=== PATIENT | female | born 1985 | race Caucasian/White ===

== ENCOUNTER 2017-05-11 19:45 | Emergency (ER) | payer BC ==
[2017-05-11 19:50] VITALS: BP 133/78; BMI 34.9
[2017-05-11 20:38] LABS: BILIRUBIN,URINE NEGATIVE (NEGATIVE); BLOOD/HEMOGLOBIN,URINE NEGATIVE (NEGATIVE); GLUCOSE, URINE NEGATIVE (NEGATIVE); KETONES,URINE NEGATIVE (NEGATIVE); LEUKOCYTE ESTERASE ,URINE 1+ (NEGATIVE); NITRITES,URINE NEGATIVE (NEGATIVE); PROTEIN,URINE 1+ (NEGATIVE); UROBILINOGEN,URINE NORMAL (NORMAL)
[2017-05-11 20:50] LABS: AMNISURE ROM TEST NO MEMBRANES RUPTURE (NO RUPTURE)
[2017-05-11 21:08] LABS: APPEARANCE,URINE HAZY (CLEAR); BACTERIA,URINE 2+ /HPF (NEGATIVE); CALCIUM OXALATE CRYSTALS,UR FEW /HPF (NEGATIVE); COLOR,URINE YELLOW (YELLOW); RBC,URINE 0-3 /HPF (NEGATIVE); SQUAMOUS EPITHELIAL CELL,UR FEW /HPF (NEGATIVE)
== END 2017-05-11 21:21 | disposition home or self-care (01) ==
LOC: ER 20:07
DX: O26.893 Other specified pregnancy related conditions, third trimester (principal)
CPT/HCPCS: 81001; 84112; 87086; 99284

== ENCOUNTER 2017-05-21 18:30 | Inpatient (IN) | payer BC ==
[2017-05-21 18:46] VITALS: BMI 34.9
[2017-05-21] MEDS ORDERED: NUBAIN INJ 200 MG VIAL MULTIDOSE IVP PRN (19:30)
[2017-05-21] MEDS ORDERED: REGLAN INJ 10 MG VIAL IVP PRN (19:30)
[2017-05-21] MEDS ORDERED: PITOCIN 10 UNITS in D5 LR 1000 ML 1,000 ML IV PRN (19:30)
[2017-05-21] MEDS ORDERED: PITOCIN IVP ONE (19:30)
[2017-05-21] MEDS ORDERED: PHENERGAN INJ 25 MG IV PRN (19:30)
[2017-05-21 19:41] LABS: BILIRUBIN,URINE NEGATIVE (NEGATIVE); BLOOD/HEMOGLOBIN,URINE 2+ (NEGATIVE); GLUCOSE, URINE 1+ (NEGATIVE); KETONES,URINE NEGATIVE (NEGATIVE); LEUKOCYTE ESTERASE ,URINE 1+ (NEGATIVE); NITRITES,URINE NEGATIVE (NEGATIVE); PROTEIN,URINE 1+ (NEGATIVE); UROBILINOGEN,URINE NORMAL (NORMAL)
[2017-05-21] MEDS ORDERED: LR 1000 ML IV 1,000 ML IV ONE ×2 (19:43→22:08)
[2017-05-21] MEDS ORDERED: D5LR 1000ML W PITOCIN 10 U/L 1,000 ML IV ONE (19:43)
[2017-05-21] MEDS ORDERED: D5 1/2 NS 1000ML W PITOCIN 20 U/L 1,000 ML IV ONE (19:43)
[2017-05-21 19:49] LABS: BASOPHILS # (AUTO) 0.1 X10^3/uL (0.0-0.1); BASOPHILS % (AUTO) 0.8 % (0.2-1.0); EOSINOPHILS # (AUTO) 0.1 x10^3/uL (0.0-0.2); EOSINOPHILS % (AUTO) 0.5 % (0.9-2.9); HEMATOCRIT 37.3 % (36.0-47.0); HEMOGLOBIN 13.2 g/dL (12.0-16.0); LYMPHOCYTES # (AUTO) 2.2 X10^3/uL (1.3-2.9); LYMPHOCYTES % (AUTO) 12.1 % (21.0-51.0); MEAN CORPUSCULAR HEMOGLOBIN 30.5 pg (27.0-34.0); MEAN CORPUSCULAR HGB CONC 35.4 g/dL (33.0-35.0); MEAN CORPUSCULAR VOLUME 86.1 fL (80.0-100.0); MEAN PLATELET VOLUME 8.5 fL (7.4-11.0); MONOCYTES # (AUTO) 1.1 x10^3/uL (0.3-0.8); MONOCYTES % (AUTO) 6.2 % (0.0-13.0); NEUTROPHILS # (AUTO) 14.5 x10^3/uL (2.2-4.8); NEUTROPHILS % (AUTO) 80.4 % (42.0-75.0); PLATELET COUNT 225 X10^3/uL (150.0-450.0); RED BLOOD COUNT 4.33 X10^6/uL (3.5-5.4); RED CELL DISTRIBUTION WIDTH 13.6 % (11.6-16.5)
[2017-05-21 19:52] LABS: APPEARANCE,URINE SLIGHTLY HAZY (CLEAR); COLOR,URINE YELLOW (YELLOW)
[2017-05-21 19:53] LABS: BLOOD UREA NITROGEN 6 mg/dL (7-18); CALCIUM 8.1 mg/dL (8.5-10.1); CARBON DIOXIDE 19.2 mmol/L (21-32); CHLORIDE 104 mmol/L (98-107); CREATININE 0.63 mg/dL (0.55-1.02); GLUCOSE 88 mg/dL (65-99); SODIUM 137 mmol/L (136-145); eGFR BLACK RACES > 60 (>60); eGFR NON BLACK RACES > 60 (>60)
[2017-05-21 19:53] LABS: BACTERIA,URINE TRACE /HPF (NEGATIVE); SQUAMOUS EPITHELIAL CELL,UR MODERATE /HPF (NEGATIVE)
[2017-05-21] MEDS ORDERED: D5 1/2 NS 1000 ML 1,000 ML IV SCH (20:00)
[2017-05-21] MEDS ORDERED: FENTANYL INJ 100 mcg ONE (20:09)
[2017-05-21] MEDS ORDERED: NAROPIN EPIDURAL 0.2% + FENTANYL 90MCG 60 ML EPI ONE (20:09)
[2017-05-21] MEDS ORDERED: FENTANYL INJ 100 mcg EPI ONE (22:07)
[2017-05-21] MEDS ORDERED: NAROPIN EPIDURAL 0.2% + FENTANYL 90MCG EPI SCH (23:00)
[2017-05-22] MEDS ORDERED: PITOCIN ONE (00:11)
[2017-05-22] MEDS ORDERED: MOTRIN TAB 800 MG PO PRN (01:58)
[2017-05-22] MEDS ORDERED: PHENERGAN INJ 25 MG IV PRN ×2 (01:58→02:37)
--- NOTE | 2017-05-22 01:58 | DR.OB ---
OB Quick Note - Assessment/Plan Assessment/Plan: Delivery Note FAMILY SUPPORT SPECIALIST 05/22/17 at 1:45am Patient complete and pushing. Severe variables with each CTX and push that began to be slow to return to baseline. Scalp electrode replaced and then bradycardia noted to 60's. Lei forceps easily applied with good fit. Head delivered with one push. Foreps released. Nose and mouth bulb suctioned. Nuchal cord x 1 noted/tight that was reduced. Body delivered over intact perineum. Cord clamped x 2 and cut. Infant handed to attendant. Cord sent for gases. Placenta delivered spontaneously / intact / 3 vessel cord. No CVX tears noted. A 4th degree midline tear noted and repaired with 0-vicryl in usual fashion. Viable male , VTX/OA, wt=7'12" and 1/6/7, stable to NBN. Mother stable to RR. SMI=[id number]. moving all extremities and no bruising noted on head.
[2017-05-22] MEDS ORDERED: D5 1/2 NS 1000 ML 1,000 ML with PITOCIN 20 UNITS IV SCH ×4 (02:00→10:00)
[2017-05-22] MEDS ORDERED: ADACEL TDaP IM ONE (02:37)
[2017-05-22] MEDS ORDERED: AMBIEN PO PRN (02:37)
[2017-05-22] MEDS ORDERED: DERMOPLAST SPRAY TOP PRN (02:37)
[2017-05-22] MEDS ORDERED: MILK OF MAGNESIA PO PRN (02:37)
[2017-05-22] MEDS ORDERED: REGLAN INJ 10 MG VIAL IVP PRN (02:37)
[2017-05-22] MEDS ORDERED: DERMOPLAST SPRAY ONE (02:57)
[2017-05-22] MEDS: MOTRIN TAB 800 MG PO PRN ×3 (04:55→21:51)
[2017-05-22 06:12] LABS: BASOPHILS # (AUTO) 0.1 X10^3/uL (0.0-0.1); BASOPHILS % (AUTO) 0.3 % (0.2-1.0); HEMATOCRIT 29.7 % (36.0-47.0); HEMOGLOBIN 10.4 g/dL (12.0-16.0); LYMPHOCYTES # (AUTO) 1.1 X10^3/uL (1.3-2.9); LYMPHOCYTES % (AUTO) 5.2 % (21.0-51.0); MEAN CORPUSCULAR HEMOGLOBIN 30.3 pg (27.0-34.0); MEAN CORPUSCULAR VOLUME 86.6 fL (80.0-100.0); MEAN PLATELET VOLUME 8.6 fL (7.4-11.0); MONOCYTES # (AUTO) 1.4 x10^3/uL (0.3-0.8); MONOCYTES % (AUTO) 6.4 % (0.0-13.0); NEUTROPHILS # (AUTO) 19.3 x10^3/uL (2.2-4.8); NEUTROPHILS % (AUTO) 88.1 % (42.0-75.0); PLATELET COUNT 179 X10^3/uL (150.0-450.0); RED BLOOD COUNT 3.43 X10^6/uL (3.5-5.4); RED CELL DISTRIBUTION WIDTH 13.1 % (11.6-16.5)
[2017-05-22 06:48] LABS: WHITE BLOOD COUNT 21.9 X10^3/uL (3.6-10.0)
[2017-05-22 06:49] LABS: BAND NEUTROPHILS % 5 % (0-10); PLATELET MORPHOLOGY COMMENT NORMAL (NORMAL)
[2017-05-22] MEDS: PROTONIX TAB 40 MG PO SCH (08:26)
[2017-05-22] MEDS: PRENATAL PLUS PO SCH (08:26)
[2017-05-22] MEDS: COLACE CAP 100 MG PO SCH ×2 (08:26→21:50)
[2017-05-22] MEDS ORDERED: PROTONIX TAB 40 MG PO SCH (09:00)
[2017-05-22] MEDS ORDERED: COLACE CAP 100 MG PO SCH (09:00)
[2017-05-23 06:12] LABS: BASOPHILS % (AUTO) 0.3 % (0.2-1.0); EOSINOPHILS # (AUTO) 0.2 x10^3/uL (0.0-0.2); EOSINOPHILS % (AUTO) 1.5 % (0.9-2.9); HEMATOCRIT 25.9 % (36.0-47.0); HEMOGLOBIN 9.3 g/dL (12.0-16.0); LYMPHOCYTES # (AUTO) 2.7 X10^3/uL (1.3-2.9); LYMPHOCYTES % (AUTO) 18.1 % (21.0-51.0); MEAN CORPUSCULAR HEMOGLOBIN 31.3 pg (27.0-34.0); MEAN CORPUSCULAR HGB CONC 35.9 g/dL (33.0-35.0); MEAN CORPUSCULAR VOLUME 87.2 fL (80.0-100.0); MEAN PLATELET VOLUME 8.5 fL (7.4-11.0); MONOCYTES # (AUTO) 0.8 x10^3/uL (0.3-0.8); MONOCYTES % (AUTO) 5.7 % (0.0-13.0); NEUTROPHILS # (AUTO) 10.9 x10^3/uL (2.2-4.8); NEUTROPHILS % (AUTO) 74.4 % (42.0-75.0); PLATELET COUNT 174 X10^3/uL (150.0-450.0); RED BLOOD COUNT 2.97 X10^6/uL (3.5-5.4); RED CELL DISTRIBUTION WIDTH 13.6 % (11.6-16.5); WHITE BLOOD COUNT 14.7 X10^3/uL (3.6-10.0)
[2017-05-23] MEDS: PRENATAL PLUS PO SCH (09:08)
[2017-05-23] MEDS: MOTRIN TAB 800 MG PO PRN (09:08)
[2017-05-23] MEDS: PROTONIX TAB 40 MG PO SCH (09:09)
[2017-05-23] MEDS: COLACE CAP 100 MG PO SCH (09:09)
[2017-05-23 11:22] VITALS: BP 105/55
== END 2017-05-23 13:05 | disposition home or self-care (01) | DRG 775 ==
LOC: ER 18:50 → LD 19:30 → MED/SURG 05-22 03:03
PROVIDERS: ADMIT Specialist; ATTEND Specialist
PROC: 10D07Z3 Extraction of Products of Conception, Low Forceps, Via Natural or Artificial Opening (ICD-10-PCS; principal; 2017-05-21)
PROC: 0DQP0ZZ Repair Rectum, Open Approach (ICD-10-PCS; 2017-05-21)
PROC: 00HU33Z Insertion of Infusion Device into Spinal Canal, Percutaneous Approach (ICD-10-PCS; 2017-05-21)
PROC: 3E0234Z Introduction of Serum, Toxoid and Vaccine into Muscle, Percutaneous Approach (ICD-10-PCS; 2017-05-22)
DX: O99.613 Diseases of the digestive system complicating pregnancy, third trimester (principal); Z37.0 Single live birth; Z3A.38 38 weeks gestation of pregnancy; Z23 Encounter for immunization; O70.3 Fourth degree perineal laceration during delivery
CPT/HCPCS: 09167; 36415; 59409; 80048; 81001; 85025; 86592; 86850; 86900; 86901; 96365; 99284; A4216; A4222; S0197; J2590; J3010; J7042; J7120

== ENCOUNTER 2019-07-15 06:30 | Inpatient (IN) ==
[~2019-07-15 06:30] MED LIST: D5 1/2 NS 1000 ML 1,000 ML ONE
--- NOTE | 2019-07-15 07:13 | DR.OB ---
OB Quick Note - Assessment/Plan Assessment/Plan: L&D 07/15/19 at 7:00am S-No complaint. O-Afebrile,VSS [id number] with good LTV, +accel, no decel. CTX=none CVX=2cm/50%/-1/VTX AROM with clear fluid. IUPC and FSE placed. A-IUP at 38 5/7 weeks for induction AMA P-Begin pitocin induction Anticipate
[2019-07-15] MEDS ORDERED: D5LR 1L W PITOCIN 10 UNITS/L 10 UNITS/1,000 ML BAG IV PRN (07:16)
[2019-07-15] MEDS ORDERED: PHENERGAN INJ 25 MG IM PRN ×2 (07:16→17:17)
[2019-07-15] MEDS ORDERED: NUBAIN INJ 200 MG VIAL MULTIDOSE IVP PRN (07:16)
[2019-07-15] MEDS ORDERED: D5 1/2 NS 1000 ML 1,000 ML IV SCH (07:16)
[2019-07-15] MEDS ORDERED: PITOCIN IVP ONE (07:16)
[2019-07-15] MEDS ORDERED: MORPHINE SULFATE INJ 2 MG INJ IVP PRN (07:16)
[2019-07-15] MEDS ORDERED: REGLAN INJ 10 MG VIAL IVP PRN (07:16)
[2019-07-15] MEDS ORDERED: D5LR 1L W PITOCIN 10 UNITS/L 10 UNITS/1,000 ML BAG IV ONE (07:44)
[2019-07-15] MEDS ORDERED: LR 1000 ML IV 1,000 ML ONE (09:33)
[2019-07-15] MEDS ORDERED: FENTANYL INJ 100 mcg ONE (09:50)
[2019-07-15] MEDS ORDERED: NAROPIN EPIDURAL 0.2% + FENTANYL 90MCG 60 ML EPI ONE ×2 (09:51→15:52)
[2019-07-15] MEDS ORDERED: D5 1/2 NS 1L W PITOCIN 20 UNITS/L 20 UNITS/1,000 ML BAG IV ONE (10:54)
[2019-07-15] MEDS ORDERED: PITOCIN ONE (10:54)
--- NOTE | 2019-07-15 11:34 | DR.OB ---
OB Quick Note - Assessment/Plan Assessment/Plan: L&D 07/15/19 at 11:25am Pitocin=14mu/min. S-No complaint. s/p epidural. O-Afebrile,VSS SPH=129 with good LTV, +accel, no decel. CTX=q 1 1/2 to 2 1/2 min., about 35-55mmHg CVX=3-4cm/75%/0 A-IUP at 38 5/7 weeks for induction AMA P-Cont. pitocin induction Anticipate
[2019-07-15] MEDS ORDERED: D5 1/2 NS 1000 ML 1,000 ML ONE (13:43)
[2019-07-15] MEDS ORDERED: MARCAINE 0.25% WITH EPI IJ ONE (16:37)
--- NOTE | 2019-07-15 17:17 | DR.OB ---
OB Quick Note - Assessment/Plan Assessment/Plan: Delivery Note ACADEMY DIRECTOR 07/15/19 at 4:50pm Patient complete and pushing. Head delivered over intact perineum. Nuchal cord x 1 reduced. Nose and mouth bulb suctioned. Compound presentation with right hand at head noted. Body delivered over intact perineum. Cord clamped x 2 and cut. handed to attendant. Cord sent for gases. Placenta delivered spontaneously / intact / 3 vessel cord. No CVX tears. A small midline second degree tear noted and repaired with 0-vicryl in usual fashion. A small rudolph- urethral tear noted requiring a single stitch of 0-vicryl for hemostasis. Viable female infant, VTX/OA, wt=8'2" and 9/9, stable to NBN. Mother st able to RR. [id number].
[2019-07-15] MEDS ORDERED: MILK OF MAGNESIA PO PRN (17:58)
[2019-07-15] MEDS ORDERED: DERMOPLAST SPRAY TOP PRN (17:58)
[2019-07-15] MEDS ORDERED: ADACEL or BOOSTRIX TDaP VACCINE IM ONE (17:58)
[2019-07-15] MEDS ORDERED: AMBIEN PO PRN (17:58)
[2019-07-15] MEDS: D5 1/2 NS 1000 ML 1,000 ML with PITOCIN 20 UNITS IV SCH ×2 (18:00)
[2019-07-15] MEDS: MOTRIN TAB 800 MG PO PRN (19:20)
[2019-07-16 04:17] LABS: HEMATOCRIT 27.8 % (36.0-47.0)
[2019-07-16 04:18] LABS: HEMOGLOBIN 9.8 g/dL (12.0-16.0)
[2019-07-16] MEDS: D5 1/2 NS 1000 ML 1,000 ML with PITOCIN 20 UNITS IV SCH ×2 (06:13)
[2019-07-16] MEDS: MOTRIN TAB 800 MG PO PRN ×2 (08:18→19:34)
[2019-07-16] MEDS: COLACE CAP 100 MG PO SCH ×2 (08:20→21:13)
[2019-07-16] MEDS: PROTONIX TAB 40 MG PO SCH (08:20)
[2019-07-16] MEDS: FERROUS GLUCONATE PO SCH ×2 (08:20→17:47)
[2019-07-16] MEDS: PRENATAL PLUS PO SCH (08:20)
[2019-07-17] MEDS: FERROUS GLUCONATE PO SCH (06:00)
[2019-07-17] MEDS: COLACE CAP 100 MG PO SCH (09:05)
[2019-07-17] MEDS: PRENATAL PLUS PO SCH (09:05)
[2019-07-17] MEDS: PROTONIX TAB 40 MG PO SCH (09:05)
[2019-07-17 09:45] VITALS: BP 114/56
== END 2019-07-17 12:00 | disposition home or self-care (01) | DRG 807 ==
LOC: LD 06:33 → MED/SURG 18:13
PROVIDERS: ADMIT Specialist; ATTEND Specialist
DX: O99.02 Anemia complicating childbirth; O70.1 Second degree perineal laceration during delivery; Z3A.38 38 weeks gestation of pregnancy; Z37.0 Single live birth; O71.82 Other specified trauma to perineum and vulva; Z23 Encounter for immunization; O99.613 Diseases of the digestive system complicating pregnancy, third trimester; D50.8 Other iron deficiency anemias
CPT/HCPCS: 36415; 59409; 85014; 85018; 90715; A4216; A4222; S0020; S0197; J2590; J3010; J7120; S5010